=== PATIENT | female | born 1980 | race Caucasian/White ===

== ENCOUNTER → 2024-09-26 16:33 | Outpatient (REF) | payer OTHER, SELFPAY | LOC: HWRAD 16:33 | PROVIDERS: ATTENDING PHYSICIAN Physical Medicine & Rehabilitation; FAMILY PHYSICIAN Pediatrics | DX: S16.1XXA Strain of muscle, fascia and tendon at neck level, initial encounter (principal) | CPT/HCPCS: 72052 ==

== ENCOUNTER 2024-12-25 06:21 | Day surgery (SDC) | payer OTHER, SELFPAY | END 2024-12-25 12:50 | disposition home or self-care (01) | LOC: GI 06:21 | PROVIDERS: ATTENDING PHYSICIAN Surgery | DX: Z12.11 Encounter for screening for malignant neoplasm of colon (principal); D12.2 Benign neoplasm of ascending colon | CPT/HCPCS: 45385; 88305 ==